=== PATIENT | female | born 1980 | race Caucasian/White ===

== ENCOUNTER 2019-09-20 10:59 | Emergency (ER) | payer BC, SELFPAY ==
[~2019-09-20] VITALS: Ht 157.5 cm; Wt 57.2 kg
[2019-09-20 12:26] LABS: BASO # 0.1 10^3/uL (0.0-0.2); BASO % 0.7 % (0.0-1.0); EOS # 0.1 10^3/uL (0.0-0.5); EOS % 0.7 % (0.0-3.0); HEMATOCRIT 46.2 % (36.0-47.0); HEMOGLOBIN 15.3 g/dl (12.0-15.5); LYMPH # 2.2 10^3/uL (1.5-5.0); LYMPH % 21.7 % (24.0-44.0); MEAN CORPUSCULAR HEMOGLOBIN 30.8 pg (27.0-33.0); MEAN CORPUSCULAR HGB CONC 33.1 g/dl (32.0-36.5); MEAN CORPUSCULAR VOLUME 93.1 fl (80.0-96.0); MONO # 0.5 10^3/uL (0.0-0.8); MONO % 4.7 % (0.0-5.0); NEUTROPHILS # 7.1 10^3/uL (1.5-8.5); NEUTROPHILS % 71.9 % (36.0-66.0); PLATELET COUNT, AUTOMATED 294 10^3/uL (150-450); RED BLOOD COUNT 4.96 10^6/uL (4.00-5.40); WHITE BLOOD COUNT 9.9 10^3/uL (4.0-10.0)
[2019-09-20] MEDS ORDERED: ZOFR8TAB24 PO (12:33)
[2019-09-20] MEDS ORDERED: SYNT75TA PO (12:33)
[2019-09-20] MEDS ORDERED: DIAZ5TAB PO (12:33)
[2019-09-20] MEDS ORDERED: OXYC-517 PO (12:33)
[2019-09-20] MEDS ORDERED: PHENERGAN PO (12:33)
[2019-09-20] MEDS ORDERED: FLOM0.4C39 PO (12:33)
--- NOTE | 2019-09-20 13:09 | REP ---
Chest x-ray: Two views. History: Dyspnea. Diaphoresis. . Comparison study: No comparison study . Findings: The lungs are well inflated and free of infiltrate. The pleural angles are sharp. The heart size is normal. Pulmonary vasculature is not increased. No significant bony abnormality is seen. Impression: Negative chest x-ray. Electronically Signed by Geovani Thomas MD 09/20/2019 01:00 P
[2019-09-20] MEDS ORDERED: NS 1,000 ML IV ONE (13:15)
[2019-09-20] MEDS ORDERED: METOCLOPRAMIDE INJ 10MG/2ML VIAL (J2765) IV ONE (13:15)
[2019-09-20 14:19] LABS: INFLUENZA A AMPLIFICATION NEGATIVE (NEGATIVE); INFLUENZA B AMPLIFICATION NEGATIVE (NEGATIVE)
[2019-09-20] MEDS ORDERED: ISOVUE-370 76% 100ML VIAL (Q9967) As Ordered ONE (14:43)
[2019-09-20 14:49] LABS: ALBUMIN 4.8 GM/DL (3.2-5.2); BILIRUBIN,DIRECT 0.2 MG/DL (0.0-0.2); BILIRUBIN,TOTAL 0.7 MG/DL (0.2-1.0); FREE T3 2.7 PG/ML (2.2-4.0); FREE T4 0.73 NG/DL (0.76-1.46); THYROID STIMULATING HORMONE 5.61 uIU/ML (0.358-3.740); TOTAL PROTEIN 8.4 GM/DL (6.4-8.2)
--- NOTE | 2019-09-20 15:05 | ECGEPIP ---
[facility] - ED Test Date: 2019-09-20 Pat Name: NUVIA TITUS Department: Room: - Gender: Female Vending Technician: sean : 1980 Requested By: Feng Adrian Order Number: [id number] Reading MD: Daily Branham Measurements Intervals [place] Rate: 86 P: 72 IN: 159 QRS: 44 QRSD: 81 T: 58 QT: 358 QTc: 430 Interpretive Statements SINUS RHYTHM POSSIBLE RIGHT VENTRICULAR CONDUCTION DELAY NO PRIOR Electronically Signed on 09-20-2019 15:05:26 EST by Daily Branham
--- NOTE | 2019-09-20 15:57 | REP ---
CT ABDOMEN AND PELVIS WITH IV CONTRAST: TECHNIQUE: Axial contrast enhanced images from the lung bases to the pubic symphysis using 100 mL Isovue 370 intravenous contrast material with multiplanar reformations. Visualized lung bases are clear. The liver demonstrates no mass. The patient has had a prior cholecystectomy. I do not see significant biliary dilatation. Spleen is normal in size with no intrinsic abnormality. The adrenal glands are normal. No definite abnormality is seen of the pancreas. There is no pancreatic duct dilatation. There is no pancreatic mass. There appear to be small cysts in both kidneys, more so on the left than on the right. There is no hydronephrosis. There is no abdominal aortic aneurysm. There is no adenopathy, free air, or free fluid. There is no bowel wall thickening. The patient has had a prior appendectomy. No pelvic mass is seen. Probable involuting cyst or follicle is seen in the right ovary. There is a small nabothian cyst. Urinary bladder is mildly distended and grossly unremarkable. IMPRESSION: No acute abnormality is detected. No free air or free fluid. No bowel wall thickening. No definite pancreatitis. A negative CT exam does not exclude pancreatitis. Electronically Signed by Dmitriy Son MD 09/20/2019 05:05 P
[2019-09-20 16:16] VITALS: BP 134/89
== END 2019-09-20 16:34 | disposition home or self-care (01) ==
LOC: M ED 10:59
DX: R94.6 Abnormal results of thyroid function studies (principal); R06.00 Dyspnea, unspecified; M54.2 Cervicalgia; E06.3 Autoimmune thyroiditis; Z79.899 Other long term (current) drug therapy; Z88.0 Allergy status to penicillin; Z88.1 Allergy status to other antibiotic agents; Z88.8 Allergy status to other drugs, medicaments and biological substances; Z91.018 Allergy to other foods; Z91.030 Bee allergy status; F17.210 Nicotine dependence, cigarettes, uncomplicated
CPT/HCPCS: 36415; 71046; 74177; 80047; 80076; 82150; 83690; 84439; 84443; 84481; 84702; 85025; 85379; 87502; 93005; 96361; 96374; 99284; J2765; Q9967